=== PATIENT | female | born 1960 | race Caucasian/White ===

== ENCOUNTER 2017-08-30 08:14 | Outpatient (CLI) | payer BC ==
[2017-08-30] MEDS ORDERED: Gadobenate Dimeglumine 529 MG/1 ML (20ML VIAL) ONE (09:00)
--- NOTE | 2017-08-30 09:38 | MRI ---
BRAIN MRI WITH AND WITHOUT CONTRAST: History: Right arm paraesthesia, numbness. FINDINGS: Ventricular system is normal in size. No midline shift. There are foci of signal alteration throughou t the cerebral hemispheres indicating minimal chronic microvascular ischemic disease. There is no acu te territory infarction. No intracranial hemorrhage susceptibility. Imaged skull base flow voids are grossly unremarkable. There is no nonenhancing intraaxial mass. IMPRESSION: 1. No acute intracranial abnormalities. 2. Minimal chronic microvascular ischemic disease. POS: FREDI
== END 2017-08-30 08:15 | disposition home or self-care (01) ==
LOC: SCSMRI 08:14
PROVIDERS: ATTEND Psychiatry & Neurology Neurology
DX: R20.2 Paresthesia of skin (principal); I67.82 Cerebral ischemia
CPT/HCPCS: 70553; A9579

== ENCOUNTER 2018-06-17 15:45 | Outpatient (CLI) | payer BC | END 2018-06-17 15:46 | disposition home or self-care (01) | LOC: BICMAMMO 15:45 | PROVIDERS: ATTEND Family Medicine | DX: Z12.31 Encounter for screening mammogram for malignant neoplasm of breast (principal); Z80.3 Family history of malignant neoplasm of breast | CPT/HCPCS: 77063; 77067 ==